=== PATIENT | female | born 1945 | race African-American/Black ===

== ENCOUNTER 2019-01-19 12:24 | Inpatient (IN) | payer OTHER ==
[~2019-01-19] VITALS: Ht 175.3 cm; Wt 66.8 kg
[2019-01-19 12:56] VITALS: BP 132/52
[2019-01-19] MEDS ORDERED: MULTIVITAMINS1 EAC2 ORAL (12:56)
[2019-01-19] MEDS ORDERED: NORVASC10 MG ORAL (12:56)
[2019-01-19] MEDS ORDERED: TENORMIN50 MG ORAL (12:56)
--- NOTE | 2019-01-19 13:07 | Emergency Room Report ---
History of Present Illness General Chief Complaint: Syncope Source: Patient Present Illness HPI Patient presents after a syncopal episode she reports that she had gone to her neighbor's house It was her birthday soon after the patient was not feeling well and was walking back to her house She was feeling dizzy and lightheaded reported to her friend to get her and while she was trying to grab onto something Patient had a syncopal episode and does not recall collapsing to the ground denies any headache denies any focal weakness She had some mild abrasion and discomfort to the right elbow Denies any chest pain or shortness of breath patient has history of MDS, however not taking any medication currently Patient does have history of hypertension and is taking medication for that Allergies: Coded Allergies: SULFA (SULFONAMIDE ANTIBIOTICS) (Verified Allergy, Unknown, 01/19/19) SULFAMETHOXAZOLE (Verified Allergy, Unknown, 01/19/19) TRIMETHOPRIM (Verified Allergy, Unknown, 01/19/19) Patient History Past Medical History: see triage record Reviewed Nursing Documentation: PMH: Agreed; PSxH: Agreed Nursing Documentation-PMH Past Medical History: No History, Except For Hx Cardiac Problems: No - MDS Hx Hypertension: Yes Review of Systems All Other Systems: negative except mentioned in HPI Physical Exam Vital Signs Date Time Temp Pulse Resp B/P (MAP) Pulse Ox O2 Delivery O2 Flow Rate FiO2 01/19/19 12:18 98.2 61 18 117/69 (85) 97 Room Air Sp02 EP Interpretation: reviewed, normal General Appearance: well appearing, no apparent distress Head: normocephalic, atraumatic Eyes: bilateral eye PERRL, bilateral eye EOMI ENT: hearing grossly normal, normal pharynx, TMs + canals normal, uvula midline Neck: full range of motion, supple, no meningismus, no bony tend Respiratory: lungs clear, normal breath sounds, no rhonchi, no respiratory distress, no retraction, no accessory muscle use Cardiovascular #1: normal peripheral pulses, regular rate, rhythm, no edema, no gallop, no JVD, no murmur Gastrointestinal: normal bowel sounds, non tender, soft, no mass, no organomegaly, non-distended, no guarding, no hernia, no pulsatile mass, no rebound Genitourinary: no CVA tenderness Musculoskeletal: normal inspection Neurologic: oriented x3, responsive, wood filler III-XII nml as tested, motor strength/ tone normal, sensory intact Psychiatric: mood/affect normal Skin: other - Abrasion to the right elbow Lymphatic: normal inspection, no adenopathy Medical Decision Making Diagnostic Impression: Primary Impression: Syncope Additional Impression: UTI (urinary tract infection) ER Course Patient is a fairly complex patient with multiple differential to consideration including but not limited to cardiac cardiopulmonary and vascular emergencies Patient's hemoglobin count is 10 patient reports that this is Consistent with her previous findings urine sample also shows UTI with positive nitrites Patient remains hemodynamically stable here given the findings however and the patient's description and syncopal episode She will require further inpatient care And cardiac evaluation and recommended for inpatient admission Labs Test 01/19/19 12:51 01/19/19 13:15 White Blood Count 7.1 K/UL (4.8-10.8) Red Blood Count 3.17 M/UL (4.20-5.40) Hemoglobin 10.0 G/DL (12.0-16.0) Hematocrit 31.5 % (37.0-47.0) Mean Corpuscular Volume 99 FL (80-99) Mean Corpuscular Hemoglobin 31.4 PG (27.0-31.0) Mean Corpuscular Hemoglobin Concent 31.7 G/DL (32.0-36.0) Red Cell Distribution Width 13.2 % (11.6-14.8) Platelet Count 257 K/UL (150-450) Mean Platelet Volume 6.2 FL (6.5-10.1) Neutrophils (%) (Auto) 67.7 % (45.0-75.0) Lymphocytes (%) (Auto) 23.4 % (20.0-45.0) Monocytes (%) (Auto) 6.8 % (1.0-10.0) Eosinophils (%) (Auto) 1.3 % (0.0-3.0) Basophils (%) (Auto) 0.9 % (0.0-2.0) Sodium Level 143 MMOL/L (136-145) Potassium Level 4.3 MMOL/L (3.5-5.1) Chloride Level 107 MMOL/L (98-107) Carbon Dioxide Level 28 MMOL/L (21-32) Anion Gap 8 mmol/L (5-15) Blood Urea Nitrogen 29 mg/dL (7-18) Creatinine 1.3 MG/DL (0.55-1.30) Estimat Glomerular Filtration Rate mL/min (>60) Glucose Level 87 MG/DL (74-106) Calcium Level 9.3 MG/DL (8.5-10.1) Total Bilirubin 0.7 MG/DL (0.2-1.0) Aspartate Amino Transf (AST/SGOT) 46 U/L (15-37) Alanine Aminotransferase (ALT/SGPT) 68 U/L (12-78) Alkaline Phosphatase 36 U/L (46-116) Troponin I 0.000 ng/mL (0.000-0.056) Total Protein 7.5 G/DL (6.4-8.2) Albumin 3.5 G/DL (3.4-5.0) Globulin 4.0 g/dL Albumin/Globulin Ratio 0.9 (1.0-2.7) Lipase 129 U/L (73-393) Urine Color Pale yellow Urine Appearance Clear Urine pH 7 (4.5-8.0) Urine Specific [place] 1.010 (1.005-1.035) Urine Protein Negative (NEGATIVE) Urine Glucose (UA) Negative (NEGATIVE) Urine Ketones Negative (NEGATIVE) Urine Blood 1+ (NEGATIVE) Urine Nitrite Positive (NEGATIVE) Urine Bilirubin Negative (NEGATIVE) Urine Urobilinogen Normal MG/DL (0.0-1.0) Urine Leukocyte Esterase 3+ (NEGATIVE) Urine RBC 2-4 /HPF (0 - 2) Urine WBC 2-4 /HPF (0 - 2) Urine Squamous Epithelial Cells Few /LPF (NONE/OCC) Urine Bacteria Moderate /HPF (NONE) EKG Diagnostic Results Rate: normal Rhythm: NSR ST Segments: no acute changes Rhythm Strip Diag. Results EP Interpretation: yes Rate: 77 Rhythm: NSR, no PVC's, no ectopy Chest X-Ray Diagnostic Results Chest X-Ray Diagnostic Results : Chest X-Ray Ordered: Yes # of Views/Limited/Complete: 1 View Indication: Chest Pain EP Interpretation: Yes Interpretation: no consolidation, no effusion, no pneumothorax Impression: No acute disease Electronically Signed by: Sarina Perez DO Last Vital Signs Date Time Temp Pulse Resp B/P (MAP) Pulse Ox O2 Delivery O2 Flow Rate FiO2 01/19/19 12:56 98.0 59 12 132/52 100 Room Air Status: improved Disposition: ADMITTED INPATIENT Condition: Serious Sarina Perez DO Jan 19, 2019 13:07
[2019-01-19 13:09] LABS: BASOPHILS % (AUTO) 0.9 % (0.0-2.0); EOSINOPHILS % (AUTO) 1.3 % (0.0-3.0); HEMATOCRIT 31.5 % (37.0-47.0); LYMPHOCYTES % (AUTO) 23.4 % (20.0-45.0); MEAN CORPUSCULAR VOLUME 99 FL (80-99); MONOCYTES % (AUTO) 6.8 % (1.0-10.0); NEUTROPHILS % (AUTO) 67.7 % (45.0-75.0); PLATELET COUNT 257 K/UL (150-450); RED BLOOD COUNT 3.17 M/UL (4.20-5.40); RED CELL DISTRIBUTION WIDTH 13.2 % (11.6-14.8); WHITE BLOOD COUNT 7.1 K/UL (4.8-10.8)
[2019-01-19 13:25] LABS: ANION GAP 8 mmol/L (5-15); BLOOD UREA NITROGEN 29 mg/dL (7-18); CALCIUM 9.3 MG/DL (8.5-10.1); CARBON DIOXIDE 28 MMOL/L (21-32); CHLORIDE 107 MMOL/L (98-107); CREATININE 1.3 MG/DL (0.55-1.30); POTASSIUM 4.3 MMOL/L (3.5-5.1); SODIUM 143 MMOL/L (136-145)
[2019-01-19 13:30] LABS: ALANINE AMINOTRANSFERASE 68 U/L (12-78); ALBUMIN 3.5 G/DL (3.4-5.0); ALBUMIN/GLOBULIN RATIO 0.9 (1.0-2.7); ALKALINE PHOSPHATASE 36 U/L (46-116); ASPARTATE AMINO TRANSFERASE 46 U/L (15-37); BILIRUBIN,TOTAL 0.7 MG/DL (0.2-1.0)
[2019-01-19 13:33] LABS: APPEARANCE,URINE CLEAR; BILIRUBIN, URINE NEGATIVE (NEGATIVE); COLOR,URINE PALE YELLOW; GLUCOSE, URINE (UA) NEGATIVE (NEGATIVE); KETONES,URINE NEGATIVE (NEGATIVE); LEUKOCYTE ESTERASE ,URINE 3+ (NEGATIVE); NITRITE,URINE POSITIVE (NEGATIVE); PH,URINE 7 (4.5-8.0); PROTEIN,URINE NEGATIVE (NEGATIVE); UROBILINOGEN,URINE NORMAL MG/DL (0.0-1.0)
[2019-01-19] MEDS ORDERED: cefTRIAXone 1 GM in NS 55 ML IVPB ONE (14:00)
--- NOTE | 2019-01-19 14:34 | Diagnostic Imaging Report ---
Indication: Cough Technique: One view of the chest Comparison: none Findings: Lungs and pleural spaces are clear. The heart size is normal. The aorta is tortuous and calcified. Impression: No acute process
[2019-01-19 20:00] VITALS: BP 143/81
[2019-01-19] MEDS ORDERED: RESTASIS1 EACH BOTH EYES (20:13)
[2019-01-19] MEDS ORDERED: ZYRTEC10 MG ORAL (20:14)
[2019-01-19] MEDS ORDERED: BENADRYL25 MG ORAL (20:14)
[2019-01-19] MEDS ORDERED: Levofloxacin 500mg tab ORAL SCH (23:00)
[2019-01-20] VITALS: BP 122/68
[2019-01-20 04:00] VITALS: BP 127/72
[2019-01-20 08:00] VITALS: BP 116/58
[2019-01-20 12:00] VITALS: BP 114/64
--- NOTE | 2019-01-20 13:11 | Diagnostic Imaging Report ---
Indication: Syncope, fall, trauma to right lateral side of skull Technique: sagittal T1 fast spin echo, axial T1 FLAIR, axial T2 FLAIR, axial T2 FS PROPELLER, axial T2* GRE, axial diffusion weighted images. ADC and exponential ADC maps generated Comparison: none Findings: No abnormal areas of restricted diffusion to suggest acute infarction. No acute hemorrhage or edema. No mass effect nor midline shift. Normal size ventricles and extra axial CSF spaces. Visualized orbits and sinuses are unremarkable. The vascular flow voids are preserved Impression: Negative
--- NOTE | 2019-01-20 14:57 | Cardiology Report ---
APPROVED REPORT EXAM: Two-dimensional and M-mode echocardiogram with Doppler and color Doppler. INDICATION Bradycardia M-Mode DIMENSIONS IVSd0.8 (0.7-1.1cm)Left Atrium (MM)2.2 (1.6-4.0cm) LVDd3.8 (3.5-5.6cm)Aortic Root3.1 (2.0-3.7cm) PWd0.8 (0.7-1.1cm)Aortic Cusp Exc.2.0 (1.5-2.0cm) IVSs1.0 cm LVDs2.1 (2.5-4.0cm) PWs1.0 cm Normal left ventricular chamber size, systolic function and wall motion . Left ventricular ejection fraction estimated to be 55%. No evidence left ventricular hypertrophy. No pericardial effusion. All other cardiac chamber sizes are within normal limits. Aortic valve calcification with normal cusp excursion . Mildly thickened mitral valve leaflets with normal excursion. Mild mitral annulus and aortic root calcification. Pulmonic valve not well visualized. IVC at normal size with physiologic collapse . A color flow and spectral Doppler study was performed and revealed: No aortic insufficiency . Mitral diastolic velocities suggest reduced left ventricular relaxation c/w mild LV diastolic dysfunction (Grade I ). Trace mitral regurgitation. Mild tricuspid regurgitation. Tricuspid systolic velocities suggests peak right ventricular systolic pressure of 23mmHg.
--- NOTE | 2019-01-20 15:30 | History and Physical Report ---
DATE OF ADMISSION: 01/19/2019 HISTORY OF PRESENT ILLNESS: This is a 73-year-old female, who came to the hospital with a syncopal episode. The patient states she was walking back and she felt dizzy and lightheaded. She does not recall falling to the ground but did saw that she had an abrasion on her right elbow. She denies any chest pain, denies any sweating. No recent fevers or night sweats. No infectious process identified. PAST MEDICAL HISTORY: Notable for hypertension. PAST SURGICAL HISTORY: None reported. ALLERGIES: Reported to sulfa. CODE STATUS: Full. FAMILY HISTORY: Noncontributory. REVIEW OF SYSTEMS: Denies any headaches, hematemesis, melena, hematochezia. PHYSICAL EXAMINATION: GENERAL: Reveals a 73-year-old female. VITAL SIGNS: Blood pressure 118/70, heart rate 64, respirations , afebrile. HEENT: Unremarkable. LUNGS: Clear breath sounds bilaterally. HEART: Normal heart sounds. ABDOMEN: Soft. EXTREMITIES: There is no edema. She has abrasion to right elbow. NEUROLOGICAL: Nonfocal. LABORATORY AND DIAGNOSTIC DATA: Lab testing shows a normal CBC and BMP except for hemoglobin of 10 and mildly elevated AST of 46. She has nitrites and wbc's suspicious for UTI. Imaging studies including chest x-ray were negative. IMPRESSION: 1. Syncope. 2. UTI. 3. Hypertension. DISCUSSION: Admitted to the hospital. We will observe, IV fluids and antibiotics. Discharge planning in next 24 hours. Johann Lacey M.D. DR: Indigo JOB#: [id number] CC:
--- NOTE | 2019-01-20 16:09 | Cardiology Report ---
APPROVED REPORT EKG Measurement Heart [id number] Sinus bradycardia Possible Left atrial enlargement Borderline ECG
[2019-01-20] MEDS ORDERED: Atenolol 25mg tab ORAL SCH (21:00)
--- NOTE | 2019-01-20 21:45 | Progress Note ---
DATE: 01/20/2019 CARDIOLOGY PROGRESS NOTE SUBJECTIVE: The patient has no dizziness or shortness of breath. Monitored rhythm sinus and sinus bradycardia. OBJECTIVE: VITAL SIGNS: Blood pressure in the range of 100 to 115 systolic over 50 to 70 diastolic. LUNGS: Clear. CARDIAC: Regular. Normal S1, S2. ABDOMEN: Soft. EXTREMITIES: No edema. IMAGING: MRI and echocardiogram are pending. IMPRESSION: 1. Syncopal episode likely due to volume depletion. 2. Prerenal azotemia and bradycardia. 3. Hypertensive heart disease. 4. Sinus bradycardia, on beta-juan jose. 5. Myelodysplastic syndrome with anemia. 6. Possible urinary tract infection. PLAN: 1. Decrease dose of atenolol to 25 daily. 2. Encourage fluid intake. 3. Avoid diuretics. 4. Await results of echocardiogram and MRI. If results are unremarkable, outpatient followup would be appropriate. Inocente Barnes M.D. DR: JOLANTA JOB#: [id number] CC:
--- NOTE | 2019-01-21 02:45 | Consultation ---
DATE OF CONSULTATION: 01/19/2019 CARDIOLOGY CONSULTATION CONSULTING PHYSICIAN: Inocente Barnes M.D. REQUESTING PHYSICIAN: Johann Lacey M.D. REASON: Syncope and bradycardia. HISTORY OF PRESENT ILLNESS: This is a 73-year-old female with a history of hypertension. She woke up this morning, feeling a little more fatigued than usual, but was able to perform her usual activities. 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 Upon arriving there, she said as a result, she went back home and while walking back, she felt lightheaded crossing the street and apparently was staggering. At that point, someone driving by stopped and asked if he needed to help her and at that point the patient apparently collapsed to the ground. She sustained an abrasion and contusion to her right elbow, but no head injury. Her was summoned by [facility] and arranged ambulance transport after calling 911. PAST MEDICAL HISTORY: Includes hypertension, myelodysplastic syndrome. ALLERGIES: Include sulfa. FAMILY HISTORY: Noncontributory. SOCIAL HISTORY: Negative for smoking, alcohol, or substance abuse. MEDICATIONS: Include amlodipine 10 daily and atenolol 50 daily. REVIEW OF SYSTEMS: A 10-point review of systems performed, all systems otherwise negative. PHYSICAL EXAMINATION: VITAL SIGNS: Initial blood pressure in the ER 117/69, heart rate 61, respiratory rate 18. Presently, 132/52, 59, 12, afebrile. Abrasion over right forearm and elbow. HEENT: Conjunctivae pink. Oropharynx clear. NECK: Supple. Jugular venous pressure normal. No bruits. Carotid upstrokes without delay. LUNGS: Clear. CARDIAC: Regular rhythm and rate. Normal S1, S2 with no murmur, rub, or gallop. ABDOMEN: Soft, nontender. EXTREMITIES: No edema. NEUROLOGIC: Entirely nonfocal. LABORATORY AND DIAGNOSTIC DATA: White count 7.1, hemoglobin 10. Potassium 4.3, BUN 29, creatinine 1.3. Troponin negative. EKG sinus bradycardia with nonspecific ST change. IMPRESSION: Syncopal episode, likely due to mild hypovolemia, prerenal azotemia, and associated orthostasis in the setting of bradycardia due to beta-blockers. I do not suspect any malignant arrhythmias, acute ischemia, or acute cerebrovascular event PLAN: 1. Recommend cardiac monitoring. 2. Hydrations. 3. Reassess beta-juan jose dosing. 4. Monitor orthostatics. 5. Check thyroid panel, echocardiogram, imaging of the head imaging of the brain. 6. We will follow. Inocente Barnes M.D. DR: CLAUS JOB#: [id number] CC:
--- NOTE | 2019-01-21 12:00 | Discharge Summary ---
Discharge Summary Discharge Summary _ DATE OF ADMISSION: 01/19/2019 DATE OF DISCHARGE: 01/20/2019 DISCHARGED BY: Dr. Lacey REASON FOR ADMISSION: 73 years old female with past medical history of hypertension, myelodysplastic syndrome, apparently sustained a syncopal episode and was brought to emergency room for evaluation . Upon evaluation vital signs showed mild bradycardia in 50s . Laboratory work-up revealed no leukocytosis , hemoglobin 10, hematocrit 31.5, platelets 257. BUN 29, creatinine 1.3. Stable electrolytes. Troponin negative. EKG revealed no acute ischemic changes. Urinalysis revealed evidence of urinary tract infection. Chest x-ray revealed no acute cardiopulmonary pathology. In emergency department patient started on the IV fluids, received empiric antibiotic and admitted to medical floor for further management. CONSULTANTS: registered respiratory therapist Dr. Barnes [facility]SE: Patient admitted to monitored floor. Echocardiogram revealed preserved ejection fraction of 55% with no evidence of left ventricular hypertrophy. No evidence of wall motion abnormality. Right ventricular systolic pressure 23. Telemetry consistently demonstrated sinus rhythm. No evidence of arrhythmia. Blood pressure was managed with amlodipine and atenolol. Dose of atenolol was decreased due to bradycardia. Heart rate stabilized. According to registered respiratory therapist, syncopal episode was likely due to volume depletion. Patient was encouraged fluid intake . MRI of the brain revealed no evidence of acute intracranial pathology. Patient started on antibiotic for urinary tract infection. At the time of this dictation urine culture revealed growth of gram-negative rods. Patient clinically stabilized and was ready for discharge home. Due to rapid and unexpected improvement in patient condition , patient was discharged in 1 day. FINAL DIAGNOSES: Syncopal episode , likely due to volume depletion Urinary tract infection Prerenal azotemia Hypertensive heart disease Sinus bradycardia, on beta-juan jose Myelodysplastic syndrome with anemia -stable DISCHARGE MEDICATIONS: See Medication Reconciliation list. DISCHARGE INSTRUCTIONS: Patient was discharged home. Follow up with primary care provider in one week. I have been assigned to dictate discharge summary for this account. I was not involved in the patient's management. Ruma Posada NP Jan 21, 2019 12:00
== END 2019-01-20 14:10 | disposition home or self-care (01) | DRG 641 ==
LOC: EDBD 12:24 → EMR 14:19 → 2E 16:30 → EDBEDREQ 17:48
DX: E86.9 Volume depletion, unspecified (principal); N39.0 Urinary tract infection, site not specified; R55 Syncope and collapse; I11.9 Hypertensive heart disease without heart failure; S50.311A Abrasion of right elbow, initial encounter; W18.30XA Fall on same level, unspecified, initial encounter; Y92.89 Other specified places as the place of occurrence of the external cause; D46.9 Myelodysplastic syndrome, unspecified; D64.9 Anemia, unspecified; R00.1 Bradycardia, unspecified
CPT/HCPCS: 36415; 70551; 71045; 80053; 81003; 83690; 84484; 85025; 87086; 87181; 93005; 93306; 96365; 99285